=== PATIENT | female | born 1970 ===

== ENCOUNTER → 2016-12-18 | Outpatient (CLI) | payer BC ==
[~2016-12-18] MED LIST: CITA10TA4 PO; CONTRAST GIVEN MC PRN; GABA-586 PO; IOHEXOL 180 MG/ML 10 ML VIAL. IT ONE; LIDOCAINE 1% Multi-Dose 20 ML VIAL. ID ONE; MELO-156 PO; OXYC10TA57 PO
--- NOTE | 2016-12-18 13:37 | KCIC ---
PROCEDURE Fluoroscopic guided lumbar puncture for lumbar spine CT myelography; lumbar spine CT myelogram; lumbar spine, flexion and extension views. HISTORY Lower back pain and left lower extremity radiculopathy. TECHNIQUE Frontal, lateral, flexion and extension views of the lumbar spine are obtained. Subsequently, the risks of the procedure were discussed with the patient and written and verbal consent was obtained. A time-out was performed. Fluoroscopic imaging of the lumbar spine was performed and a site overlying L4-L5 was selected. The skin overlying this region was sterilely prepped, draped and infiltrated with 1 percent lidocaine. A 25 gauge needle was advanced into the thecal sac and appropriate needle tip position was confirmed with spontaneous yield of cerebral spinal fluid within the needle hub. 12 cc Omnipaque 180 intrathecal contrast was injected into the thecal sac. The needle was removed and a sterile bandage was placed at the needle entry site. For fluoroscopic images were obtained in the prone, lateral neutral and flexion and extension positions. The patient was then transferred to the CT suite for the post injection CT portion of the exam. The patient tolerated the procedure without difficulty. The total fluoroscopy time was 36 seconds. One or more of the following individualized dose reduction techniques were utilized for this examination: 1. Automated exposure control; 2. Adjustment of the mA and/or kV according to patient size; 3. Use of iterative reconstruction technique. COMPARISON None. FINDINGS The upright frontal, lateral, flexion and extension views of the lumbar spine demonstrate no evidence of listhesis or abnormal motion between flexion and extension. The vertebral bodies are normal in height. There is mild facet arthropathy at the lumbosacral junction. The CT images demonstrate no listhesis. The vertebral bodies are normal in height. There are tiny endplate Schmorl's nodes at L1-L2. The conus terminates at T12-L1. There is no suspicious osseous lesion. There is vacuum phenomenon within the sacroiliac joints. At L1-L2 and L2-L3, there is no stenosis. At L3-L4, there is a minimal disc bulge. There is minimal right foraminal stenosis. At L4-L5, there is a minimal disc bulge. There is minimal right greater than left left foraminal stenosis. At L5-S1, there is a broad-based left paracentral disc protrusion superimposed on a disc bulge. This slightly effaces the left lateral recess and deviates the traversing left S1 nerve root without significant central canal stenosis. There is mild bilateral foraminal stenosis. IMPRESSION 1. L5-S1: Broad-based left paracentral disc protrusion superimposed on a disc bulge, effacing the left lateral recess and deviating the traversing left S1 nerve root and contributing to mild bilateral foraminal stenosis. 2. Minimal degenerative change at additional levels described above. Electronically signed by: Chanda Yu (Dec 18, 2016 13:35:15)
== END | disposition home or self-care (01) ==
LOC: KCIC 11:45
PROVIDERS: ATTEND Neurological Surgery
DX: M54.16 Radiculopathy, lumbar region (principal)
CPT/HCPCS: 72110; 72132; 72265